=== PATIENT | female | born 1970 | race Caucasian/White ===

== ENCOUNTER → 2018-05-30 | Emergency (ER) | payer BC, MEDICAID ==
[2018-05-30] MEDS: KETOROLAC 30 MG INJ IM (18:10)
[2018-05-30] MEDS: METHOCARBAMOL 750 MG TAB PO (18:10)
[2018-05-30] MEDS: DEXAMETHASONE 10 MG/ML 1 ML INJ IM (18:11)
== END | disposition home or self-care (01) ==
LOC: FTE 16:48
DX: M54.5 Low back pain (principal)
CPT/HCPCS: 81025; 96372; 99284-25